=== PATIENT | female | born 1950 | race Asian ===

== ENCOUNTER 2024-12-27 16:25 | Inpatient (IN) | payer MEDICARE, MEDICAID ==
[~2024-12-27] VITALS: Ht 149.9 cm; Wt 27.2 kg
[~2024-12-27 16:25] MED LIST: HYDR25TA PO; VERA120T20 PO
[2024-12-27 17:11] LABS: PLATELET COUNT (AUTO) 167 K/uL (150-450); RED BLOOD CELL COUNT(AUTO) 4.23 MIL/uL (4.00-5.20); RED CELL DISTRIBUTION WIDTH 12.8 % (11.5-14.5); WHITE BLOOD COUNT (AUTO) 16.9 K/uL (4.5-11.0)
[2024-12-27 17:19] LABS: CALCIUM, TOTAL 9.5 mg/dL (8.8-10.5); CREATININE 1.22 mg/dL (0.60-1.30); GLOMERULAR FILTR. RATE CALC 43 mL/min (>60); GLUCOSE,RANDOM 159 mg/dL (70-110); SODIUM SERUM 132 mmol/L (136-145); UREA NITROGEN, BLOOD 29 mg/dL (7-18)
[2024-12-27 17:29] LABS: LACTIC ACID 2.0 mmol/L (0.4-2.0)
[2024-12-27 17:30] LABS: TROPONIN I-HIGH SENSITIVITY 506 ng/L (<51)
[2024-12-27] MEDS: SODIUM CHLORIDE 0.9% 1,000 ML IV ONE (17:41)
[2024-12-27] MEDS: SODIUM CHLORIDE 0.9% 1,250 ML IV ONE (17:41)
[2024-12-27] MEDS: CefTRIAXone 1 GM/DEXTROSE 50 ML IV ONE (17:43)
[2024-12-27] MEDS ORDERED: HEPARIN SODIUM,PORCINE 5,000 UNITS/ML VIAL IVP PRN (17:45)
[2024-12-27] MEDS ORDERED: HEPARIN SODIUM,PORCINE 5,000 UNITS/ML VIAL IVP ONE (17:45)
[2024-12-27] MEDS: HEPARIN SODIUM,PORCINE 5,000 UNITS/ML VIAL IVP ONE (18:33)
[2024-12-27] MEDS: HEPARIN SODIUM 25000 UNITS/D5W 250 ML IV PRN (18:34)
[2024-12-27 18:57] LABS: APPEARANCE,URINE HAZY (CLEAR); GLUCOSE, URINE (UA) NEGATIVE (NEGATIVE); LEUKOCYTE ESTERASE ,URINE LARGE (NEGATIVE); NITRATE,URINE NEGATIVE (NEGATIVE); OCCULT BLOOD,URINE LARGE (NEGATIVE); SPECIFIC GRAVITIY, URINE 1.018 (1.003-1.030)
[2024-12-27 19:31] LABS: SQUAMOUS EPITHELIAL CELL,UR Few /LPF (None Seen)
[2024-12-27] MEDS: FUROSEMIDE 20 MG/2 ML VIAL IVP ONE (20:14)
[2024-12-27 20:51] LABS: TROPONIN I-HIGH SENSITIVITY 1404 ng/L (<51)
[2024-12-27 21:30] VITALS: BP 120/59; PULSE 99; RESP 25; TEMP 103.1; O2SAT 94
[2024-12-27] MEDS: ACETAMINOPHEN 325 MG TABLET PO PRN (22:18)
[2024-12-28] VITALS (7 sets, daily range): BP systolic 92–109; BP diastolic 43–58; PULSE 72–107; RESP 18–22; TEMP 98.6–102.9; O2SAT 96–100
[2024-12-28] MEDS ORDERED: ALBUTEROL SULFATE 2.5 MG/0.5 ML NEB SOLUTION NEB PRN (01:15)
[2024-12-28] MEDS ORDERED: MORPHINE SULFATE 2 MG/ML SYRINGE IVP PRN (01:15)
[2024-12-28] MEDS ORDERED: ZOLPIDEM TARTRATE 5 MG TABLET PO PRN (01:15)
[2024-12-28] MEDS ORDERED: BISACODYL 10 MG RECTAL RECTAL SUPPOSITORY PR PRN (01:15)
[2024-12-28] MEDS ORDERED: HYDROCODONE/ACETAMINOPHEN 5-325 MG TABLET PO PRN (01:15)
[2024-12-28] MEDS ORDERED: ONDANSETRON HCL 4 MG/2 ML VIAL IVP PRN (01:15)
[2024-12-28] MEDS ORDERED: ACETAMINOPHEN 325 MG TABLET PO PRN (01:15)
[2024-12-28] MEDS ORDERED: MAGNESIUM HYDROXIDE SUSPENSION 30 ML UDCUP PO PRN (01:15)
[2024-12-28] MEDS ORDERED: IPRATROPIUM BROMIDE 0.5 MG/2.5 ML NEB SOLUTION NEB PRN (01:15)
[2024-12-28 07:18] LABS: PLATELET COUNT (AUTO) 155 K/uL (150-450); RED BLOOD CELL COUNT(AUTO) 4.03 MIL/uL (4.00-5.20); RED CELL DISTRIBUTION WIDTH 13.2 % (11.5-14.5); WHITE BLOOD COUNT (AUTO) 18.7 K/uL (4.5-11.0)
[2024-12-28 07:24] LABS: RBC MORPHOLOGY COMMENT NORMAL RBC MORPH
[2024-12-28] MEDS ORDERED: HEPARIN SODIUM,PORCINE 5,000 UNITS/ML VIAL SQ SCH ×2 (08:00)
[2024-12-28] MEDS: HEPARIN SODIUM,PORCINE 5,000 UNITS/ML VIAL IVP PRN ×3 (08:09→23:46)
[2024-12-28] MEDS: PANTOPRAZOLE SODIUM 40 MG DR TABLET PO SCH (08:34)
[2024-12-28] MEDS ORDERED: MIDODRINE HCL 5 MG TABLET PO SCH (09:00)
[2024-12-28] MEDS ORDERED: HEPARIN SODIUM,PORCINE 5,000 UNITS/ML VIAL IVP ONE (10:45)
[2024-12-28 12:05] LABS: TROPONIN I-HIGH SENSITIVITY 552 ng/L (<51)
[2024-12-28] MEDS: CefTRIAXone 1 GM/DEXTROSE 50 ML IV SCH (17:14)
[2024-12-28] MEDS: HEPARIN SODIUM 25000 UNITS/D5W 250 ML IV PRN (23:48)
[2024-12-29 01:08] VITALS: BP 124/67; PULSE 81; RESP 18; TEMP 98.1; O2SAT 93
[2024-12-29 06:29] VITALS: BP 103/56; PULSE 79; RESP 16; TEMP 98.2; O2SAT 98
[2024-12-29 06:53] LABS: PLATELET COUNT (AUTO) 152 K/uL (150-450); RED BLOOD CELL COUNT(AUTO) 3.77 MIL/uL (4.00-5.20); RED CELL DISTRIBUTION WIDTH 12.8 % (11.5-14.5); WHITE BLOOD COUNT (AUTO) 11.8 K/uL (4.5-11.0)
[2024-12-29 07:40] LABS: CALCIUM, TOTAL 8.4 mg/dL (8.8-10.5); CREATININE 1.01 mg/dL (0.60-1.30); GLOMERULAR FILTR. RATE CALC 54.0 mL/min (>60); GLUCOSE,RANDOM 177.0 mg/dL (70-110); UREA NITROGEN, BLOOD 24.0 mg/dL (7-18)
[2024-12-29 08:25] VITALS: BP 107/66; PULSE 80; RESP 17; TEMP 98.2; O2SAT 98
[2024-12-29 08:55] LABS: SODIUM SERUM 134.0 mmol/L (136-145)
[2024-12-29 12:14] VITALS: BP 107/69; PULSE 88; RESP 17; TEMP 99.5; O2SAT 98
[2024-12-29 16:13] VITALS: BP 129/72; PULSE 86; RESP 17; TEMP 100.8; O2SAT 98
[2024-12-29 20:03] VITALS: BP 108/65; PULSE 78; RESP 17; TEMP 98.1; O2SAT 96
[2024-12-30] VITALS: BP 125/75; PULSE 84; RESP 18; TEMP 98.4; O2SAT 99
[2024-12-30 04:00] VITALS: BP 126/79; PULSE 89; RESP 18; TEMP 98.4; O2SAT 98
[2024-12-30 08:13] LABS: PLATELET COUNT (AUTO) 185 K/uL (150-450); RED BLOOD CELL COUNT(AUTO) 3.92 MIL/uL (4.00-5.20); RED CELL DISTRIBUTION WIDTH 12.7 % (11.5-14.5); WHITE BLOOD COUNT (AUTO) 11.2 K/uL (4.5-11.0)
[2024-12-30 08:37] LABS: CALCIUM, TOTAL 8.5 mg/dL (8.8-10.5); CREATININE 0.73 mg/dL (0.60-1.30); GLOMERULAR FILTR. RATE CALC > 60 mL/min (>60); GLUCOSE,RANDOM 166 mg/dL (70-110); SODIUM SERUM 140 mmol/L (136-145); UREA NITROGEN, BLOOD 14 mg/dL (7-18)
[2024-12-30 08:39] VITALS: BP 130/78; PULSE 100; RESP 19; TEMP 98.4; O2SAT 99
[2024-12-30] MEDS ORDERED: ASPI-1450 PO (10:50)
[2024-12-30] MEDS ORDERED: ATOR20TA PO (10:50)
[2024-12-30] MEDS ORDERED: CIPR250T6 PO (10:51)
[2024-12-30 11:15] VITALS: BP 129/68; PULSE 88; RESP 19; TEMP 98.6; O2SAT 98
[2024-12-30] MEDS: ATORVASTATIN CALCIUM 20 MG TABLET PO SCH (14:39)
[2024-12-30] MEDS: ASPIRIN 81 MG CHEWABLE TABLET PO SCH (14:39)
== END 2024-12-30 16:00 | disposition home or self-care (01) | DRG 871 ==
LOC: EMS 16:25 → EDH 18:29 → 5S 21:31
PROVIDERS: ADMIT Hospitalist; ATTEND Hospitalist
DX: A41.9 Sepsis, unspecified organism (principal); I21.A1 Myocardial infarction type 2; N39.0 Urinary tract infection, site not specified; E87.1 Hypo-osmolality and hyponatremia; I10 Essential (primary) hypertension; E11.9 Type 2 diabetes mellitus without complications; G90.89 Other disorders of autonomic nervous system; Z83.3 Family history of diabetes mellitus; Z90.710 Acquired absence of both cervix and uterus; Z82.49 Family history of ischemic heart disease and other diseases of the circulatory system
CPT/HCPCS: 70450; 71045; 80048; 81001; 83605; 83880; 84145; 84484; 85025; 85610; 85730; 87040; 87086; 93005; 93306; 96365; 99291; J0696; J1644; J1938; 36415-L1; 36415-TC